=== PATIENT | female | born 1945 | race Caucasian/White ===

== ENCOUNTER → 2023-05-02 10:23 | Outpatient (REF) | payer MEDICARE, OTHER, SELFPAY ==
[2023-05-02 12:16] LABS: % Basophils 0.7 % (0-2); % Eosinophils 0.8 % (0-6); % Immature Granulocytes 0.7 % (0-0.5); % Lymphocytes 21.4 % (20.5-51.1); % Monocytes 6.8 % (1.7-9.3); % Neutrophils 69.6 % (42.2-75.2); Absolute Eosinophils 0.1 10^3/uL (0-0.7); Absolute Lymphocytes 1.3 10^3/uL (1.2-3.4); Absolute Monocytes 0.4 10^3/uL (0.1-0.6); Absolute Neutrophils 4.2 10^3/uL (1.4-6.5); Hematocrit 41.7 % (37.0-47.0); Hemoglobin 13.4 g/dL (12.0-16.0); Mean Corp Hgb Conc. 32.1 g/dL (33.0-37.0); Mean Corpuscular Hgb 28.3 pg (27.0-31.0); Mean Platelet Volume 12.2 fL (7.4-10.4); Nucleated Red Blood Cells % 0 %; Platelet Count 170 10^3/uL (130-400); Red Blood Cell Count 4.74 10^6/uL (4.20-5.40); Red Cell Dist. Width 13.8 % (11.5-14.5); White Blood Cell Count 6.1 10^3/uL (4.8-10.8)
[2023-05-02 12:24] LABS: INR 1.02; PT 13.4 Sec (11.4-14.6)
[2023-05-02 12:25] LABS: APTT 27.1 Sec (23.4-35.0)
[2023-05-02 12:36] LABS: ALT (SGPT) 18 U/L (0-35); AST (SGOT) 24 U/L (14-36); Albumin 3.7 g/dl (3.5-5.0); Alkaline Phosphatase 54 U/L (38-126); Blood Urea Nitrogen 10 mg/dl (7-17); Calcium 9.2 mg/dl (8.4-10.2); Carbon Dioxide 30 mmol/L (22-30); Chloride 102 mmol/L (98-107); Glucose 88 mg/dl (70-99); HDL Cholesterol 79 mg/dl; Iron 50 ug/dl (37-170); LDL Cholesterol, Calculated 129 mg/dl; Potassium 3.7 mmol/L (3.5-5.1); Sodium 138 mmol/L (135-145); Total Bilirubin 0.7 mg/dl (0.2-1.3); Total Cholesterol 226 mg/dl (50-199); Total Protein 6.6 g/dl (6.3-8.2); Triglyceride 93 mg/dl (10-149); Very Low Density Lipoprotein 18 mg/dl (0-30); eGFR > 60.00
[2023-05-02 12:45] LABS: Percent Saturation 13 % (20-50); Total Iron Binding Capacity 380 ug/dl (265-497)
[2023-05-02 12:58] LABS: Vitamin D, 25-OH*** 32.8 ng/mL (30-80)
[2023-05-02 13:16] LABS: Ferritin 11.3 ng/ml (11.1-264.0)
[2023-05-02 13:48] LABS: Folate 15.4 ng/ml (2.76-20); Vitamin B12 863 pg/ml (239-931)
[2023-05-02 14:13] LABS: Erythrocyte Sed Rate 12 mm/hour (0-20)
[2023-05-03 16:15] LABS: Number Of Markers 26 markers; Source Blood
[2023-05-05 20:22] LABS: Haptoglobin 61 mg/dL (30-200)
[2023-05-05 21:43] LABS: Purkinje Cell/Neuronal Nuc IgG None Detected (None Detected)
[2023-05-06 13:23] LABS: Alpha-Tocopherol 14.3 mg/L (5.5-18.0)
[2023-05-07 04:14] LABS: Albumin 4.14 g/dL (3.75-5.01); Alpha 1 Globulin 0.27 g/dL (0.19-0.46); Alpha 2 Globulin 0.59 g/dL (0.48-1.05); Free Kappa Light Chains,Quant 15.36 mg/L (3.30-19.40); Free Lambda Light Chains,Quant 11.98 mg/L (5.71-26.30); IgA 214 mg/dL (68-408); IgG 799 mg/dL (768-1632); IgM 88 mg/dL (35-263); Immunofixation Electrophoresis IFE Done; Kappa/Lambda Fr Light Ratio 1.28 (0.26-1.65); Total Protein-Electrophoresis 6.5 g/dL (6.3-8.2)
[2023-05-07 16:36] LABS: Viscosity Serum 1.17 cP (<=1.50)
== END ==
LOC: HWLAB 10:23
PROVIDERS: ATTENDING PHYSICIAN Internal Medicine Hematology & Oncology; FAMILY PHYSICIAN Family Medicine; OTHER PHYSICIAN Physician Assistant; OTHER PHYSICIAN Psychiatry & Neurology Neurology; REFERRING PHYSICIAN Internal Medicine
DX: R26.89 Other abnormalities of gait and mobility (principal); I73.00 Raynaud's syndrome without gangrene; D72.823 Leukemoid reaction; D89.1 Cryoglobulinemia; R79.1 Abnormal coagulation profile; C88.0 Waldenstrom macroglobulinemia; D53.1 Other megaloblastic anemias, not elsewhere classified; D50.0 Iron deficiency anemia secondary to blood loss (chronic); R97.8 Other abnormal tumor markers; I10 Essential (primary) hypertension; I48.0 Paroxysmal atrial fibrillation; E78.00 Pure hypercholesterolemia, unspecified; E55.9 Vitamin D deficiency, unspecified
CPT/HCPCS: 36415; 80053; 80061; 82306; 82607; 82728; 82746; 82784; 83010; 83521; 83540; 83550; 84155; 84165; 84446; 85025; 85610; 85652; 85730; 85810; 86140; 86255; 86334

== ENCOUNTER → 2023-07-11 10:01 | Outpatient (REF) | payer MEDICARE, OTHER, SELFPAY ==
[2023-07-11 11:55] LABS: % Basophils 0.6 % (0-2); % Eosinophils 0.3 % (0-6); % Immature Granulocytes 0.8 % (0-0.5); % Lymphocytes 22.2 % (20.5-51.1); % Monocytes 6.8 % (1.7-9.3); % Neutrophils 69.3 % (42.2-75.2); Absolute Immature Granulocytes 0.1 10^3/uL (0-0.05); Absolute Lymphocytes 1.4 10^3/uL (1.2-3.4); Absolute Monocytes 0.4 10^3/uL (0.1-0.6); Absolute Neutrophils 4.4 10^3/uL (1.4-6.5); Mean Corp Hgb Conc. 32.5 g/dL (33.0-37.0); Mean Corpuscular Hgb 27.9 pg (27.0-31.0); Mean Corpuscular Volume 85.8 fL (81.0-99.0); Mean Platelet Volume 12.5 fL (7.4-10.4); Nucleated Red Blood Cells % 0 %; Platelet Count 166 10^3/uL (130-400); Red Blood Cell Count 4.66 10^6/uL (4.20-5.40); Red Cell Dist. Width 15.1 % (11.5-14.5); White Blood Cell Count 6.4 10^3/uL (4.8-10.8)
[2023-07-11 12:11] LABS: Blood Urea Nitrogen 18 mg/dl (7-17); Calcium 9.4 mg/dl (8.4-10.2); Carbon Dioxide 29 mmol/L (22-30); Chloride 105 mmol/L (98-107); Glucose 90 mg/dl (70-99); Potassium 3.8 mmol/L (3.5-5.1); Sodium 139 mmol/L (135-145); eGFR > 60.00
== END ==
LOC: HWLAB 10:01
PROVIDERS: ATTENDING PHYSICIAN Family Medicine
DX: Z01.818 Encounter for other preprocedural examination (principal)
CPT/HCPCS: 36415; 80048; 85025

== ENCOUNTER 2023-11-20 17:05 | Observation (INO) | payer MEDICARE, OTHER, SELFPAY ==
[2023-11-20 15:47] VITALS: BP 208/107
[2023-11-20 16:03] LABS: Glucose - Point of Care 169 mg/dl (70-99)
[2023-11-20 16:04] LABS: % Basophils 0.4 % (0-2); % Eosinophils 0.7 % (0-6); % Immature Granulocytes 0.5 % (0-0.5); % Lymphocytes 22.5 % (20.5-51.1); % Monocytes 8.3 % (1.7-9.3); % Neutrophils 67.6 % (42.2-75.2); Absolute Eosinophils 0.1 10^3/uL (0-0.7); Absolute Lymphocytes 1.7 10^3/uL (1.2-3.4); Absolute Monocytes 0.6 10^3/uL (0.1-0.6); Absolute Neutrophils 5.1 10^3/uL (1.4-6.5); Hematocrit 37.4 % (37.0-47.0); Hemoglobin 12.6 g/dL (12.0-16.0); Mean Corp Hgb Conc. 33.7 g/dL (33.0-37.0); Mean Corpuscular Hgb 27.7 pg (27.0-31.0); Mean Corpuscular Volume 82.2 fL (81.0-99.0); Mean Platelet Volume 12.2 fL (7.4-10.4); Nucleated Red Blood Cells % 0 %; Platelet Count 158 10^3/uL (130-400); Red Blood Cell Count 4.55 10^6/uL (4.20-5.40); Red Cell Dist. Width 14.8 % (11.5-14.5); White Blood Cell Count 7.6 10^3/uL (4.8-10.8)
--- NOTE | 2023-11-20 16:05 | ED.CVA ---
History of Present Illness
General
Chief Complaint: CVA/TIA Symptoms
Source: patient and family (Daughter)
Exam Limitations: none
Time Seen by Provider: 11/20/23 16:04
Onset of Stroke Symptoms
Onset of symptoms known: Yes
Date of onset of symptoms: 11/20/23
Time of onset of symptoms: 15:20
History of Present Illness
History of Present Illness:
78-year-old female sudden onset of right-sided numbness to the arm and leg at about 3:20 PM. Called her daughter. Met at the hospital with her . Patient denies any gait issues unusual headache visual issues speech issues or other
complaints. Symptoms are unchanged since onset
Past History
Past History
ED Past Medical History: Arrthythmia and Other (HTN, AFIB, WALDENSTROM'S, GERD, IBS)
ED Past Surgical History: Orthopedic
Social History
Tobacco: Non-smoker
Alcohol: None
Drug: None
Personal:
Living: with family
Review of Systems
Review of Systems
All Other Systems: Not applicable
Respiratory: Reports no symptoms
Cardiac: Reports no symptoms
ABD/GI: Reports no symptoms
Phy Exam
Physical Exam
Physical Exam:
GENERAL: Alert and oriented in no apparent distress
EYE: Orbits normal.
NECK: Supple, no carotid bruit.
ENT: Pharynx without erythema
CARDIAC: Regular rate and rhythm without any obvious murmurs.
LUNGS: Clear breath sounds,normal
ABDOMEN: Soft, without focal tenderness or distention
NEUROLOGICAL: Alert and oriented , speech normal. Slightly slow to answer questions although fully alert. [id number]-[id number] normal. No drift. Good lower extremity strength. No extinction. Light touch intact although subjectively decreased in the
arm and leg.
SKIN: Warm and dry, no rash or lesion, no discoloration, skin intact.
MUSCULOSKELETAL: No edema,no deformity.Good color
PSYCH: Normal and appropriate interaction.
Scores
NIH Stroke Score
Level of Consciousness: 0 - Alert
LOC Questions: 0-Answers both correctly
LOC Commands: 0-Performs both correctly
Best Horizontal Gaze: 0-Normal
Visual Butcher: 0=Normal, no visual loss
Facial Palsy: 0=Normal, symmetrical
Motor - Right Arm: 0=No drift 10 seconds
Motor - Left Arm: 0=No drift 10 seconds
Motor - Right Le-No drift 5 seconds
Motor - Left Le-No drift 5 seconds
Limb Ataxia: 0-Absent
Sensation: 1-Mild loss
Best Language: 0-No aphasia
Dysarthria: 0-Normal
Extinction and Inattention: 0-No abnormality
Total Score:: 1
Course
Orders/Labs/Results
Orders:
Orders
11/20/23 15:56
Electrocardiogram (*1) Urgent
Reason for Study: Other
Other Reason for Exam: Possible Stroke
CT Head W/o Cont STROKE ALERT Urgent
Comment: symptoms started 15:20 pm today.
Reason For Exam: right face and right arm numbness
EKG- Treatment ONCE
IV Insert/Care/Rem.- Treatment PRN
11/20/23 15:58
Complete Blood Count/With Diff Urgent
Comprehensive Metabolic Panel Urgent
PTT Urgent
Prothrombin Time Urgent
Troponin I Urgent
11/20/23 16:24
Aspirin Chewable [Low Strength Aspirin] 324 mg PO NOW STA
11/20/23 16:44
Admit/Transfer Patient As Directed
Co-Sign Provider:
Level of Care: Observation services
Assign to:: Telemetry
Physician / Group: Htay
Diagnosis: right sided numbness
Reason for Telemetry: CVA/TIA
Date to Stop Telemetry: 11/23/23
Time to Stop Telemetry: 11:00
11/20/23 16:45
PRN Pain Medication Management As Directed
May give lesser potent ordered pain med per pt: Yes
preference::
Protocol:: Medication orders for pain may be administered in a
manner that supports deferring to patient preference
when the pt is:
- Requesting an ordered lesser potent pain medication.
Least to most potent pain medications are defined
as: acetaminophen < NSAID < tramadol < opioids
(morphine, oxycodone, hydromorphone).
- Requesting a lesser dose of the same medication IF
ORDERED.
- Requesting a less intrusive route of administration
if both routes are prescribed by the provider (PO <
IV).
11/20/23 16:46
Code Status As Directed
Resuscitation Status: Full Code
11/20/23 17:57
Acetaminophen [Tylenol/Feverall] 650 mg RECTAL Q4HPRN PRN
Acetaminophen [Tylenol] 650 mg PO Q4HPRN PRN
HydrALAZINE [Apresoline] 5 mg IV Q4HPRN PRN
11/20/23 17:57
Case Management Consult ONCE
Case Management Consult: Discharge Planning
Comment: stroke/tia
DIETARY CONSULT Routine
Reason for Consult: stroke/TIA
NEUROLOGY CONSULT Routine
Consulting Provider: Karlo Barth
Was physician already notified: Yes
Wellness Nurse Urgent
Activity As Directed
Activity Level: Out of Bed- Chair
NIH Stroke Scale As Directed
Directions: Per protocol
Comment: every shift and with any change in condition or mental status
Neurological Checks As Directed
Frequency: q4h
Additional Instructions:: q4h x 24h upon admission to the floor, then qshift & with any change in condition
and mental status
Patient Education As Directed
Type: Stroke education packet
Comment: provide to patient and family
Pneumatic Compression Sleeves As Directed
Type: Knee high
Swallow Screening CVA/TIA ONLY As Directed
Comment: NPO until swallowing screening completed
If patient FAILS swallow screening:: NPO, Speech Therapy consult, Aspiration Precautions
If patient PASSES swallow screening, diet:: Cholesterol Lowering
Above diet order entered?: Yes- passed screening
Vital Signs As Directed
Frequency: Per unit guidelines
Ot Eval And Treat Routine
Pt Eval And Treat Routine
Activity Level: Out of Bed-Early Mobility
Speech Therapy Eval & Treat Routine
DX Deep Vein Thrombosis Video Routine
11/20/23 20:00
Flecainide [Tambocor] 150 mg PO Q12
11/21/23 06:00
Basic Metabolic Panel IN AM
Cardiovascular Evaluation IN AM
Complete Blood Count/No Diff IN AM
Glycohemoglobin (HgbA1c) IN AM
Magnesium IN AM
11/21/23 08:00
Aspirin Chewable [Low Strength Aspirin] 81 mg PO DAILY
11/21/23 15:00
ibrutinib [Imbruvica] 420 mg PO DAILY@1500
11/21/23 20:00
Amlodipine [Norvasc] 5 mg PO BID
HydrALAZINE [Apresoline] 10 mg PO BID
11/23/23 11:00
DC Protocol for Telemetry ONCE
Abnormal Lab Results
11/20/23 11/20/23
15:58 16:01
RDW 14.8 H %
(11.5-14.5)
MPV 12.2 H fL
(7.4-10.4)
BUN 20 H mg/dl
(7-17)
Glucose 191 H mg/dl
(70-99)
POC Glucose 169 H mg/dl
(70-99)
11/20/23 15:58
11/20/23 15:58
Vital Signs
Initial and Last Documented VS:
Initial Vital Signs
Temp Pulse Resp BP Pulse Ox
98.5 F 70 16 208/107 98
11/20/23 15:47 11/20/23 15:47 11/20/23 15:47 11/20/23 15:47 11/20/23 15:47
Last Documented Vital Signs
Temp Pulse Resp BP Pulse Ox
98.6 F 73 17 151/80 92
11/20/23 20:59 11/20/23 21:10 11/20/23 20:59 11/20/23 21:10 11/20/23 20:59
MDM/Problems Addressed
Differential Diagnosis Includes:
Patient with an NIH of 1. Symptoms for 45 minutes. No drift no weakness. No speech issues. Unsure why she is not on anticoagulation with a [id number] of 2+. However not an indication for TNK given the minimal disability at this time.
Daughter who is a neurologic nurse is in agreement. Stroke alert was called. Await neurology input.
*Radiology
Radiology exam reviewed: radiology read reviewed (Old lacunar infarcts)
*Pulse Oximetry
Patient hypoxic: no
*EKG
Interpreted by ED Provider?: Yes
Interpretation: abnormal
Comparison EKG: changes noted
Rate: normal
Rhythm: sinus
[place]: left axis deviation
Interval: normal interval
QRS Pattern: left vent hypertrophy
Ischemia: non-specific ST changes
*Mine Car Mechanic Interpretation
Rate: normal
Interpretation: normal
Heart Rate: 74
Rhythm: sinus
*Critical Care Note
Total Time (30-74mins, 75-104mins- exclusive of procedures): 40
Update Note
Update Note:
Seen by neurology. Agree with aspirin. Reviewed with nephrology
ED Attending Note
-
Portions of this chart may have been created with voice recognition software.� Occasional wrong word or��sound alike� substitutions may have occurred due to the inherent limitations of voice recognition software.
Discharge Plan
Departure
Patient Disposition: Admit
Date of Disposition: 11/20/23
Time of Disposition: 16:26
Presentation/result/management discussed w/ accepting MD/DO: Neurology
Discharge Problem:
Sensory CVA, History of atrial fibrillation
Interventions
Interventions:
*Risk Screen - Suicide Last Done: 11/20/23 16:10
*General Assessment Last Done: 11/20/23 16:10
*Neglect/Abuse Screening Last Done: 11/20/23 15:47
*ED COVID-19 Vaccine History Last Done: 11/20/23 18:25
*Nursing Disposition Last Done: 11/20/23 18:00
ED- Pulmonary Assessment Last Done: 11/20/23 16:10
ED- Neurological Assessment Last Done: 11/20/23 16:10
ED- Cardiac Assessment Last Done: 11/20/23 16:10
ED Swallowing Screen Last Done: 11/20/23 16:20
Discharge Date and Time
Discharge Date/Time: 11/20/23 18:00
[2023-11-20 16:09] VITALS: BP 183/76
[2023-11-20 16:10] VITALS: BMI 22.3
[2023-11-20 16:17] LABS: INR 1.03; PT 13.3 Sec (11.4-14.6)
[2023-11-20 16:18] LABS: APTT 25.8 Sec (23.4-35.0)
[2023-11-20 16:22] LABS: ALT (SGPT) 17 U/L (0-35); AST (SGOT) 25 U/L (14-36); Albumin 4.1 g/dl (3.5-5.0); Alkaline Phosphatase 48 U/L (38-126); Blood Urea Nitrogen 20 mg/dl (7-17); Carbon Dioxide 24 mmol/L (22-30); Chloride 104 mmol/L (98-107); Estimated Creatinine Clearance 49 ml/min; Glucose 191 mg/dl (70-99); Potassium 3.9 mmol/L (3.5-5.1); Sodium 142 mmol/L (135-145); Total Bilirubin 0.4 mg/dl (0.2-1.3); Total Protein 6.5 g/dl (6.3-8.2); eGFR > 60.00
[2023-11-20 16:28] LABS: Troponin I < 0.012 ng/ml
[2023-11-20] MEDS: LOW STRENGTH ASPIRIN 324 MG PO (16:34)
--- NOTE | 2023-11-20 16:56 | HPS.HSE ---
Family Physician
-
Family Physician: NOT KNOW UNKNOWN - PT DOES
Chief Complaint
-
Right Sided Numbness
History of Present Illness
Patient is a 78 yo Citizen Of [place]/Swedish-speaking female with a hx of HTN, Afib with a permanent pacemaker, Waldenstrom's macroglobulinemia, presents with new R-sided numbness and weakness that began this afternoon. History provided by patient and
patient's daughter. Her symptoms began suddenly this afternoon when she developed numbness in her lips, right UE and right LE. She also had felt weak in her right arm and dropped a cup that she was holding in her right hand. Additionally she felt
unstable on her feet and daughter noted that pt's speech was slightly slurred. Daughter did not notice a facial droop. Patient states she has never experienced these symptoms before. As of now her symptoms have improved and she only notes some
numbness still in her lips, worse on the right side. According to the daughter she does not currently take a blood thinner for her Afib. She denies dizziness, vision changes, headache, chest pain, or SOB.
Medical History
Past Medical History
Past Medical History: Reports Other
Additional Past Medical History:
Paroxysmal Atrial Fibrillation
Waldenstrom Macroglobulinemia
Essential Hypertension
Hyperlipidemia
Macular Degeneration
Past Surgical History: Reports Other
Additional Past Surgical History:
Left Hand
Social History
Tobacco: Non-smoker
Alcohol: None
Family History
Family History: Not pertinent
Allergies / Home Medications
Allergies reflects when Allergies were last updated in [facility].
Home Medications with original date entered in [facility]
Allergy/Medication List:
Allergies
Allergy/AdvReac Type Severity Reaction Status Date / Time
adhesive tape Allergy Rash Verified 11/20/23 15:50
metoprolol Allergy dizziness Verified 11/20/23 15:50
Home Medications
amlodipine 5 mg tablet 5 mg PO BID 11/20/23
cholecalciferol (vitamin D3) 50 mcg (2,000 unit) tablet (Vitamin D3) 50 mcg PO DAILYPRN PRN supplement 11/20/23
conjugated estrogens 0.625 mg/gram vaginal cream (Premarin) 0.625 mg vaginal QWEEK 11/20/23
flecainide 100 mg tablet 150 mg PO Q12H 11/20/23
hydralazine 10 mg tablet 10 mg PO BID 11/20/23
hydralazine 10 mg tablet 10 mg PO DAILYPRN PRN hypertension 11/20/23
ibrutinib 420 mg tablet (Imbruvica) 420 mg PO DAILY@1500 11/20/23
ranibizumab-eqrn 0.5 mg/0.05 mL intravitreal solution for injection (Cimerli) 0.5 mg intravitreal Q4W 11/20/23
Review of Systems
-
Unable to obtain full review of systems at this time due to: Language Barrier
Physical Exam
Vital Signs
Vital Signs
Temp Pulse Resp BP Pulse Ox
98.5 F 70 18 183/76 97
11/20/23 15:47 11/20/23 16:45 11/20/23 16:45 11/20/23 16:09 11/20/23 16:45
Physical Exam
General: Comfortable and Conversant
HEENT: Anicteric and Moist mucous membranes
Respiratory: Clear and Non Labored Respirations
Cardiac: S1/S2, Regular Rhythm and Murmur
GI: Soft and Non Distended
Rectal: Deferred by Provider
Musculoskeletal: No Clubbing, No Cyanosis and No Edema
Skin: Warm and Dry
Neuro: Awake, Alert, No Motor Deficits and Other (Reported decreased sensation right upper and lower extremity)
Laboratory Results
-
11/20/23 15:58
11/20/23 15:58
Laboratory Results
PT 13.3 Sec (11.4-14.6) 11/20/23 15:58
INR 1.03 11/20/23 15:58
APTT 25.8 Sec (23.4-35.0) 11/20/23 15:58
Total Bilirubin 0.4 mg/dl (0.2-1.3) 11/20/23 15:58
AST 25 U/L (14-36) 11/20/23 15:58
ALT 17 U/L (0-35) 11/20/23 15:58
Alkaline Phosphatase 48 U/L (38-126) 11/20/23 15:58
Troponin I < 0.012 ng/ml 11/20/23 15:[address]:
There is a 3 mm probably old lacunar infarct in the right external capsule
There is 3 mm probably lacunar infarct in the left external capsule
There is mild diffuse cortical and cerebellar atrophy
Data Reviewed
-
Lab Data: Labs Reviewed by me
Impression/Plan
-
Right Sided Numbness
-Consult Neurology
-Start aspirin
-Check HgbA1c and FLP
-Patient unable to have MRI as pacemaker is NOT MRI conditional per family
-Check repeat head CT tomorrow
Paroxysmal Atrial Fibrillation
-Unclear why patient is not on anticoagulation
-Consult Cardiology
-Continue flecainide
Hypertensive Emergency
-Allow for permissive hypertension for 24 hours after on set of stroke symptoms
-Will use hydralazine IV for SBP >220 or DBP>120
-Resume amlodipine and hydralazine tomorrow afternoon
Hyperlipidemia
-Patient is intolerant to statin
Waldenstrom Macroglobulinemia
-Continue Imbruvica
DVT proph: SCDs
Code Status: Full Code
--- NOTE | 2023-11-20 17:06 | W.PN.UPDATE ---
Update Note
Progress Note Update
This note serves as an addendum to the H&P by junior electrical engineer MITZI Shanika GREGORY
HPI
78F BiB Daughter HX AF , not on blood thinner for uncertain reason , HTN, WALDENSTROM'S, GERD, IBS pw sdden onset of right-sided numbness to the arm and leg at about 3:20 PM.
- Patient denies any gait issues unusual headache visual issues speech issues or other complaints.
- Symptoms are unchanged since onset
PHX; as above
Reviewed VS: afebrile BP 210/17 HR 70 RR 16 POx 98
PE
Gen: NAD
HEENT: nomrla ariculation and speech
Neck: supple
Lungs: CTA
Cor: RRR S1 S2
Abdomen: benigh
DUCK OPERATOR: NFND AAO3
MS:
Psych:
NIH 1 subjective sensory loss Rt arm and leg
Data
unremarkable CBC
unremarkable CMP
BG 191
BUN 20
NEG TPNI
EKG
In NSR
SINUS RHYTHM WITH PREMATURE ATRIAL COMPLEXES IN A PATTERN OF BIGEMINY
LEFT AXIS DEVIATION
LEFT VENTRICULAR HYPERTROPHY WITH QRS WIDENING ( R in aVL , Calos product )
ABNORMAL ECG
NO PREVIOUS ECGS AVAILABLE
HCT
There is a 3 mm probably old lacunar infarct in the right external capsule
There is 3 mm probably lacunar infarct in the left external capsule
There is mild diffuse cortical and cerebellar atrophy
Last hospitalist admission:
ASSESSMENT & PLAN
Suspect acute lacuna CVA
Acute 3 mm lacunar infarct in the left external capsule
3 mm probably old lacunar infarct in the right external capsule
HTN emergency - pemissive HTN due to acute lacuna infarct
of note; She was not APL due to HX chr intermittent dirrhea and IBS
- Permissive HTN 220 / 110 thus held Hydralzine and Amlodipine
- Initiated ASA
- Held Amlodipine and Hydralazine
- Repeat HCT tomorrow afternoon
- Neurologist consulted
HX Prx AF
- cont Flecainide
HX old model PPM - incompatible with MRI per daughter
Chr condition:
WALDENSTROM'S
GERD
IBS
DVT Px: SCD
Code: Fill
Obs TLM
--- NOTE | 2023-11-20 17:08 | CON.NEURO4 ---
Consultation - Neurology 4
-
CONSULTING PHYSICIAN: Karlo Barth MD(Neurology)
REFERRING PHYSICIAN: Hospitalist
DICTATED BY: Karlo Barth MD
DATE/TIME OF REQUEST: 11/20/2023
DATE/TIME OF CONSULTATION: 11/20/2023
Reason for Consultation: Right sided numbness....
History of Present Illness:
This is a 78 year old right handed female who has presented to the hospital with (chief complaint) of numbness. She gives a h/o , HTN, Waldenstrom macroglobulin, GERD, IBS, cardiac arrhythmia s/p pacemaker 2009 who had been in her [place] when she
had numbness of the right arm and leg at about 3:20 PM.
No motor issues. Possible slurred speech that has resolved. Pat voice very low volume
These symptoms persisted and she came into the ER. In the ER my Exam revealed no deficits
Patient denies any gait issues unusual headache visual issues speech issues or other complaints.
Symptoms are minimal since onset
History provided by daughter. Pat does not know Maltese is anxious and hesitant to answer
Past Medical History: As above
Surgical History: Pacemaker
Family History: NC
Social History: lives at home
Allergies: NKA
Home Medications: Addendum
Review of Symptoms:
Patient denies any fever, headache, chest pain, shortness of breath, GI or symptoms.
�Per the HPI.�All systems are reviewed negative except above.
�-
Vital Signs:
The patient has a Temp 37.5 C Pulse71 Resp 18 BP201/97 Pulse Ox 97
Physical Exam:
The patient is afebrile, heart sounds S1 and S2 are (regular , and chest is clear to auscultation bilaterally.
- If not clear, describe.
NIH Stroke Scale (if applicable):
I performed the NIH stroke scale on the patient. The patient scored ( 1 ) points on the NIH stroke scale assessment, which were assigned as follows:
Neurologic Examination:
The patient is awake, alert and oriented x 3. She is able to follow commands and answer questions appropriately.Speech is fluent with intact comprehension and repetition. There is no aphasia or dysarthria. Low volume
On cranial nerve assessment, pupils are 3 mm bilateral, round and reactive to light and accommodation. Visual gomez are full. Extraocular movements are intact. Facial sensations are intact and bilaterally symmetrical, there is no facial asymmetry.
Hearing is intact bilaterally to normal conversation volume. Tongue palate and uvula are midline. Sternocleidomastoid strengths are full bilaterally.
Motor strengths are 5/5 bilateral upper and lower extremities on medical research [place] scale. There is no drift or involuntary movement noted.
Deep tendon reflexes are 2+ bilateral upper and lower extremities and Babinski is absent bilaterally.
Sensations of pain, touch, temperature and vibration are intact and bilaterally symmetrical. There was no extinction noted on double simultaneous stimulation. Coordination is intact by finger to nose bilaterally. Rombergs and Gait WNL
Lab Results: Addendum
Neuro Imaging: CT head: Atrophy. Small vessel disease-Lacunar disease bilaterally . Normal ventricles
Impression:
(Mrs.) GURPREET MCGARRY is a 78 year old F who has presented to the hospital with (symptoms/chief complaint). of RIght sided numbness
Differentials for the patient's presentation include:
1. Lacunar syndrome
Recommendations:
1. Aspirin 325 mg load followed by Aspirin 81 mg maintenance
2. Serial CT head
3. Permissive HTN
4. Continue Flecainide
5. Consider Statin...
6. PT/OT
Pat may be discharged home once medically stable.
Discussed patient care with: Hospitalist
Allergies
-
Allergies
Allergy/AdvReac Type Severity Reaction Status Date / Time
adhesive tape Allergy Rash Verified 11/20/23 15:50
metoprolol Allergy dizziness Verified 11/20/23 15:50
Vital Signs and Labs
-
Vital Signs and Labs:
Vital Signs
Temp Pulse Resp BP Pulse Ox
37.5 C 71 18 201/97 97
11/20/23 18:03 11/20/23 18:03 11/20/23 18:03 11/20/23 18:03 11/20/23 18:03
Lab Results
11/20/23 15:58
11/20/23 15:58
PT 13.3 Sec (11.4-14.6) 11/20/23 15:58
INR 1.03 11/20/23 15:58
APTT 25.8 Sec (23.4-35.0) 11/20/23 15:58
Sodium 142 mmol/L (135-145) 11/20/23 15:58
Potassium 3.9 mmol/L (3.5-5.1) 11/20/23 15:58
BUN 20 mg/dl (7-17) H 11/20/23 15:58
Glucose 191 mg/dl (70-99) H 11/20/23 15:58
Calcium 9.0 mg/dl (8.4-10.2) 11/20/23 15:58
Medications
-
Active Medications
Generic Name Dose Route Start Last Admin
Trade Name Freq PRN Reason Stop Dose Admin
Acetaminophen 650 mg 11/20/23 17:57
Acetaminophen 650 Mg Rectal Suppository RECTAL 12/18/23 17:56
Q4HPRN PRN
AGUILERA, mild pain, or temp >100.4F
Acetaminophen 650 mg 11/20/23 17:57
Acetaminophen 325 Mg Tablet PO 12/18/23 17:56
Q4HPRN PRN
AGUILERA, mild pain, or temp >100.4F
Amlodipine Besylate 5 mg 11/21/23 20:00
Amlodipine 5 Mg Tablet PO 12/19/23 19:59
BID LATISHA
Aspirin 81 mg 11/21/23 08:00
Aspirin 81 Mg Chewable Tablet PO 12/19/23 07:59
DAILY LATISHA
Flecainide Acetate 150 mg 11/20/23 20:00
Flecainide 100 Mg Tablet PO 12/18/23 19:59
Q12 LATISHA
Hydralazine HCl 10 mg 11/21/23 20:00
Hydralazine 10 Mg Tablet PO 12/19/23 19:59
BID LATISHA
Hydralazine HCl 5 mg 11/20/23 17:57
Hydralazine 20 Mg/Ml Vial IV 12/18/23 17:56
Q4HPRN PRN
SBP>220 or DBP>110
Non-Formulary Medication 420 mg 11/21/23 15:00
Ibrutinib [Imbruvica] PO 12/19/23 14:59
DAILY@1500 LATISHA
Sodium Chloride 0 flush 11/20/23 18:00
Sodium Chloride 0.9% (Flush) Syringe IV 12/18/23 17:59
PER PROTOCOL LATISHA
Home Medications
�Medication �Instructions �Recorded
amlodipine 5 mg tablet 5 mg PO BID 11/20/23
cholecalciferol (vitamin D3) 50 50 mcg PO DAILYPRN PRN supplement 11/20/23
mcg (2,000 unit) tablet (Vitamin
D3)
conjugated estrogens 0.625 mg/gram 0.625 mg vaginal QWEEK 11/20/23
vaginal cream (Premarin)
flecainide 100 mg tablet 150 mg PO Q12H 11/20/23
hydralazine 10 mg tablet 10 mg PO BID 11/20/23
hydralazine 10 mg tablet 10 mg PO DAILYPRN PRN hypertension 11/20/23
ibrutinib 420 mg tablet (Imbruvica) 420 mg PO DAILY@1500 11/20/23
ranibizumab-eqrn 0.5 mg/0.05 mL 0.5 mg intravitreal Q4W 11/20/23
intravitreal solution for
injection (Cimerli)
[2023-11-20 18:02] VITALS: BMI 21.9
[2023-11-20 18:03] VITALS: BP 201/97
[2023-11-20 18:40] VITALS: BMI 21.9
--- NOTE | 2023-11-20 19:09 | PTCARENOTE ---
Received patient from ED via stretcher. AAOx3, ambulated with assistance to bed. Family at bedside. Telemetry reading A-paced. Assessed and oriented to room.
[2023-11-20 20:59] VITALS: BP 151/80
[2023-11-20] MEDS: TAMBOCOR 150 MG PO (21:00)
[2023-11-20] MEDS: NORVASC 5 MG PO (21:10)
[2023-11-20] MEDS: MELATONIN 5 MG PO (21:11)
[2023-11-20 23:22] VITALS: BP 184/88
[2023-11-21 03:35] VITALS: BP 149/88
[2023-11-21 07:15] VITALS: BP 169/97
[2023-11-21] MEDS: LOW STRENGTH ASPIRIN 81 MG PO (07:26)
[2023-11-21] MEDS: NORVASC 5 MG PO (07:26)
[2023-11-21] MEDS: TAMBOCOR 150 MG PO (07:26)
[2023-11-21 07:57] LABS: Hematocrit 39.6 % (37.0-47.0); Hemoglobin 13.1 g/dL (12.0-16.0); Mean Corp Hgb Conc. 33.1 g/dL (33.0-37.0); Mean Corpuscular Hgb 27.8 pg (27.0-31.0); Mean Corpuscular Volume 83.9 fL (81.0-99.0); Platelet Count 166 10^3/uL (130-400); Red Blood Cell Count 4.72 10^6/uL (4.20-5.40); Red Cell Dist. Width 14.9 % (11.5-14.5)
[2023-11-21 08:41] LABS: Blood Urea Nitrogen 14 mg/dl (7-17); Calcium 9.2 mg/dl (8.4-10.2); Carbon Dioxide 28 mmol/L (22-30); Chloride 104 mmol/L (98-107); Estimated Creatinine Clearance 57 ml/min; Glucose 89 mg/dl (70-99); HDL Cholesterol 78 mg/dl; LDL Cholesterol, Calculated 170 mg/dl; Magnesium 1.9 mg/dl (1.6-2.3); Potassium 3.6 mmol/L (3.5-5.1); Sodium 143 mmol/L (135-145); Total Cholesterol 271 mg/dl (50-199); Triglyceride 115 mg/dl (10-149); Very Low Density Lipoprotein 23 mg/dl (0-30); eGFR > 60.00
--- NOTE | 2023-11-21 09:06 | CON.CAR ---
Addendum entered and electronically signed by Ze Dunne MD 11/21/23 11:05:
I saw and examined the patient.
The Renal Case Manager's note was reviewed and I agree with the note.
Comment:
GEN: No distress, awake, Ox3
HEENT: supple, anicteric, mmm
LUNGS: CTA, no wheezes/rales
CV: Reg, S1/S2, 1/6 syst LSB, no gallop
ABD: soft, BS+, NT/ND
EXT: No edema
NEURO: no overt power deficits
SKIN: No rash
Plan:
She has a past medical history of paroxysmal atrial fibrillation, permanent pacemaker, hypertension, Waldenstr�m's, and ocular vitreous hemorrhage. She presents with difficulty with speech, right-sided weakness and some right facial numbness. CT
scan reveals lacunar infarcts. In the past she was felt not to be on oral anticoagulation candidate by her mix house tender because of Waldenstr�m's and significant bruising/nosebleeds. She also gets eye injections.
I suspect she has had a TIA/CVA. It remains unclear whether this is from small vessel disease or from a possible embolic source from her paroxysmal atrial fibrillation.
I had a lengthy discussion with her and her daughter regarding long-term risk of anticoagulation. With known atrial fibrillation and TIA/CVA she clearly would benefit from long-term anticoagulation from my embolic stroke risk standpoint. It
remains unclear what her long-term bleeding risk is. For now for now continue aspirin and Plavix. Check lipids. Goal LDL below 70.
She remains in a paced rhythm. Will continue flecainide 150 p.o. every 12.
She is on Imbruvica which does increase the bleeding risk with thrombocytopenia.
I did feel that a trial of Eliquis would be reasonable. The family is going to consider this option.
An MRI would be helpful here to see if her strokes were from an embolic source.
Original Note:
Consultation
Consultation Request
Date/Time Consultation Performed: 11/21/23
Requesting Provider: Dr. Matson
Performing Provider: Cindy Ivey PA-C for Dr. Dunne
Reason for Consultation: CVA symptoms
Medical History
-
Chief Complaint: R sided weakness
History of Present Illness:
Patient is a 78 yo F with PMH of PAF, [employer] PPM, HTN, waldenstrom's macroglobulinemia, venous insufficiency who presents with stroke like symptoms. She felt R sided weakness in addition to tingling around her lips, generalized weakness,
and had mild slurred speech per daughter with some word finding difficulty. Patient and daughter at bedside report symptoms are now fully resolved. She was diagnosed with waldenstrom's in 2017 and at time of her diagnosis had issues with significant
bruising/nosebleeds and so was not felt to be OAC candidate (follows with Dr. Dheeraj Wood). Daughter states for last 4 years or so she has been stable and well controlled. Her PAF has been monitored through her device and she is maintained on
flecainide. She has hypertension, however in past has been suboptimally treated due to symptoms of dizziness and falls when SBP<150. Daughter reports patient PPM NOT MRI conditional. Patient reports she is active, walks several miles daily. She has
not felt palpitations.
PMH:
PAF
Chronic flecainide therapy
Waldenstrom's macroglobulinemia, diagnosed 2016
Not OAC candidate in past due to bleeding associated with above
[employer] PPM
HTN
Venous insufficiency
Past Medical History
Past Medical History: Other (in HPI)
Social History
Tobacco: Non-Smoker
Alcohol: None
Personal:
Living: With Family
Allergies / Home Medications
Allergy/AdvReac Type Severity Reaction Status Date / Time
adhesive tape Allergy Rash Verified 11/20/23 15:50
metoprolol Allergy dizziness Verified 11/20/23 15:50
�Medication �Instructions �Recorded �Confirmed �Type
amlodipine 5 mg tablet 5 mg PO BID 11/20/23 11/20/23 History
cholecalciferol (vitamin D3) 50 50 mcg PO DAILYPRN PRN supplement 11/20/23 11/20/23 History
mcg (2,000 unit) tablet (Vitamin
D3)
conjugated estrogens 0.625 mg/gram 0.625 mg vaginal QWEEK 11/20/23 11/20/23 History
vaginal cream (Premarin)
flecainide 100 mg tablet 150 mg PO Q12H 11/20/23 11/20/23 History
hydralazine 10 mg tablet 10 mg PO BID 11/20/23 11/20/23 History
hydralazine 10 mg tablet 10 mg PO DAILYPRN PRN hypertension 11/20/23 11/20/23 History
ibrutinib 420 mg tablet (Imbruvica) 420 mg PO DAILY@1500 11/20/23 11/20/23 History
ranibizumab-eqrn 0.5 mg/0.05 mL 0.5 mg intravitreal Q4W 11/20/23 11/20/23 History
intravitreal solution for
injection (Cimerli)
Review of Systems
-
History Source: Patient and Family
All other systems: Negative unless noted
Physical Exam
Vital Signs
Temp Pulse Resp BP Pulse Ox
98.3 F 74 12 169/97 98
11/21/23 07:15 11/21/23 07:15 11/21/23 07:15 11/21/23 07:15 11/21/23 07:45
Lab Results
11/21/23 07:33
11/21/23 07:33
Troponin I < 0.012 ng/ml 11/20/23 15:58
Physical Exam
General: No Apparent Distress and Comfortable
HEENT: Normocephalic, Anicteric and Moist Mucous Membranes
Respiratory: Clear and Non Labored Respirations
Cardiac: S1/S2 and Regular Rhythm
Musculoskeletal: No Clubbing, No Cyanosis and Edema (Trace of B/L LE)
Skin: Warm and Dry
Neuro: AO x 3
Impression / Plan
-
Primary Family Services Manager: Dr. Zahra Bobo of [facility]
Primary Scalping Machine Operator: Dr. Dheeraj Wood
Assessment:
Presentation with R sided weakness
Concern for acute TIA/CVA
PAF
Chronic flecainide therapy
Waldenstrom's macroglobulinemia, diagnosed 2016
Not OAC candidate in past due to bleeding associated with above
[employer] PPM
HTN
Venous insufficiency
Carotid ultrasound 04/19/2022: 1 to 15% stenosis of bilateral internal carotid arteries
Echocardiogram 04/19/2022: EF 55 to 60%, mild MR, trace TR
Plan:
-Patient presents with R sided weakness, concern for acute TIA/CVA. fortunately patient reports symptoms have resolved
-Head CT with evidence of 'probably old' lacunar infarcts
-records obtained and reviewed from [facility] cardiology including last office visit, EKG 07/11/23, echo and carotid US 04/19/22, and device interrogation 08/25/23
-AF burden by last interrogation <1% however 75 AT/AF events from 11/24/2022 - 08/25/2023, however most episodes were brief.
-of note, she is on ibrutinib for Waldenstrom's which carries side effect of afib.
-for device interrogation today. apaced on review of tele overnight
-would repeat echo today
-patient's daughter states PPM NOT MRI conditional, however per rep appears to be conditional - if able to have MRI, would complete
-[id number] score of 6 for age, HTN, female, and now CVA by head CT. would recommend OAC - consider hematology evaluation, followed by Dr. Dheeraj Wood of [place], hgb 13.1 on 11/20
-would consider transitioning flecainide to alternative AAD given breakthrough on highest dose 150mg Q12H
-d/w neurology [employer]
Data Reviewed
-
EKG: Tracing Personally Visualized and interpreted
CT Scan: Report Reviewed by me
Medical Tests (Nuc Med, Echo etc): Report Reviewed by me
Labs: Labs Reviewed by me
Old Records: Reviewed
[2023-11-21 09:30] VITALS: BP 166/70; BP 166/88; PULSE 70; PULSE 73; O2SAT 96
--- NOTE | 2023-11-21 09:41 | W.PN.CARDCBS ---
Impression / Plan
-
Primary Hand Fabric Cutter: Dr. Zahra Bobo of [facility]
Primary Merchandising Manager: Dr. Dheeraj Wood
Assessment:
Presentation with R sided weakness
Concern for acute TIA/CVA
PAF
Chronic flecainide therapy
Waldenstrom's macroglobulinemia, diagnosed 2016
Not OAC candidate in past due to bleeding associated with above
[employer] PPM
HTN
Venous insufficiency
Carotid ultrasound 04/19/2022: 1 to 15% stenosis of bilateral internal carotid arteries
Echocardiogram 04/19/2022: EF 55 to 60%, mild MR, trace TR
Plan:
-Patient presents with R sided weakness, concern for acute TIA/CVA. fortunately patient reports symptoms have resolved
-Head CT with evidence of 'probably old' lacunar infarcts
-records obtained and reviewed from [facility] cardiology including last office visit, EKG 07/11/23, echo and carotid US 04/19/22, and device interrogation 08/25/23
-AF burden by last interrogation <1% however 75 AT/AF events from 11/24/2022 - 08/25/2023, however most episodes were brief.
-of note, she is on ibrutinib for Waldenstrom's which carries side effect of afib.
-for device interrogation today. apaced on review of tele overnight
-would repeat echo today
-patient's daughter states PPM NOT MRI conditional, however per rep appears to be conditional - if able to have MRI, would complete
-[id number] score of 6 for age, HTN, female, and now CVA by head CT. would recommend OAC - will need to discuss with hematology, followed by Dr. Dheeraj Wood of [place], hgb 13.1 on 11/20
-would consider transitioning flecainide to alternative AAD given breakthrough on highest dose 150mg Q12H
-d/w neurology MEDICAL RECORDS FIELD TECHNICIAN
Progress Note - Hand Fabric Cutter
Subjective
Date of Service: November 21, 2023
Objective
Labs:
11/21/23 07:33
11/21/23 07:33
Labs
Hgb 13.1 g/dL (12.0-16.0) 11/21/23 07:33
Hct 39.6 % (37.0-47.0) 11/21/23 07:33
Plt Count 166 10^3/uL (130-400) 11/21/23 07:33
PT 13.3 Sec (11.4-14.6) 11/20/23 15:58
INR 1.03 11/20/23 15:58
APTT 25.8 Sec (23.4-35.0) 11/20/23 15:58
Sodium 143 mmol/L (135-145) 11/21/23 07:33
Potassium 3.6 mmol/L (3.5-5.1) 11/21/23 07:33
BUN 14 mg/dl (7-17) 11/21/23 07:33
Creatinine 0.7 mg/dL (0.6-1.0) 11/21/23 07:33
Glucose 89 mg/dl (70-99) 11/21/23 07:33
Troponins
11/20/23
15:58
Troponin I < 0.012
Vital Signs and I&O:
Vital Signs
Temp Pulse Resp BP Pulse Ox
98.3 F 74 12 169/97 98
11/21/23 07:15 11/21/23 07:15 11/21/23 07:15 11/21/23 07:15 11/21/23 07:45
Vital Signs
Temp Pulse Resp BP Pulse Ox
98.3 F 74 12 169/97 98
11/21/23 07:15 11/21/23 07:15 11/21/23 07:15 11/21/23 07:15 11/21/23 07:45
Intake & Output
11/19/23 11/20/23 11/21/23 11/22/23
07:59 07:59 07:59 07:59
Intake Total 0 / 0
Balance 0 / 0
[2023-11-21 09:54] LABS: Glycohemoglobin (HgbA1c) 5.2 % (4.0-5.6)
--- NOTE | 2023-11-21 10:33 | PTOTSP ---
Pt presents to OT with grossly intact vision, cognition and UE AROM, strength and coordination. Currently at mod I/I level with basic ADLs, transfers and functional mobility in room and bathroom without AD. Pt reports all symptoms have resolved. No
further skilled OT indicated at this time.
[2023-11-21 11:05] VITALS: BP 162/90
--- NOTE | 2023-11-21 11:13 | W.PN.NEURO.1 ---
Documented by User: Arlene Goldstein NP 11/21/23 11:42
Today's Communication / Plan
-
.
Neuro Assessment/Plan
Assessment
This is a 78-year-old RH female who presented to on 11/20/23 with report of sudden onset right-sided numbness, weakness, and slurred speech at 1520. On arrival in the ER, symptoms had improved and NIHSS was 1 for mild sensation change. CT head was
obtained and is suggestive of old right and left external capsule lacunar infarcts. She was not a candidate for TNK/IAT due to low NIHSS. She was loaded with aspirin in the ER. Patient has a history of paroxysmal Afib but has not been on
anticoagulation due to her history of Waldenstrom's syndrome and ocular vitreous hemorrhages.
-CT head 11/20/23: There is a 3 mm probably old lacunar infarct in the right external capsule. There is 3 mm probably lacunar infarct in the left external capsule. There is mild diffuse cortical and cerebellar atrophy.
I. Likely a small lacunar ischemic stroke producing patient's symptoms; etiology possibly small vessel disease, Afib not on OAC.
II. Hyperlipidemia.
III. Hypertension.
IV. CT head suggestive of old lacunar infarcts, patient cannot have MRI imaging due to pacemaker incompatibility.
Plan
-Continue aspirin 81mg daily. Cardiology consultation to evaluate for benefits/risk of initiating OAC for stroke prevention.
-Permissive hypertension SBP<220, DBP<120 until 1520 today, then goal normotension.
-Monitor on telemetry.
-Family refuses repeat CT head imaging today, would prefer to do this testing as an outpatient in a few months as this will be more likely to demonstrate any structural changes.
-Carotid ultrasound pending.
-TTE pending.
-LDL goal <70. LDL is 170. Atorvastatin 40mg daily initiated.
-Goal normoglycemia, bA1c is 5.2.
-NIHSS and neurological checks per unit guidelines.
-Provide patient with a stroke education packet.
-PT/OT/St evaluations.
-DVT prophylaxis.
-Patient should follow-up with Neurology as an outpatient in about 4 weeks, may see the UNION CONTRACT REPRESENTATIVE or one of the physicians.
Subjective/Objective
Subjective Data
Date of Service: November 21, 2023
No acute events overnight. Patient notes some mild decreased sensation in all of her right hand fingertips, otherwise she feels back to her baseline. She denies any headache, dizziness, vision changes, speech/swallow difficulty, weakness, chest
pain, palpitations, and shortness of breath.
Objective Data
Vital Signs
Temp Pulse Resp BP Pulse Ox
98.3 F 74 12 169/97 98
11/21/23 07:15 11/21/23 07:15 11/21/23 07:15 11/21/23 07:15 11/21/23 07:45
Lab Results
11/21/23 07:33
11/21/23 07:33
PT 13.3 Sec (11.4-14.6) 11/20/23 15:58
INR 1.03 11/20/23 15:58
APTT 25.8 Sec (23.4-35.0) 11/20/23 15:58
Sodium 143 mmol/L (135-145) 11/21/23 07:33
Potassium 3.6 mmol/L (3.5-5.1) 11/21/23 07:33
BUN 14 mg/dl (7-17) 11/21/23 07:33
Glucose 89 mg/dl (70-99) 11/21/23 07:33
Calcium 9.2 mg/dl (8.4-10.2) 11/21/23 07:33
LDL Cholesterol, Calc 170 mg/dl 11/21/23 07:33
Patient Allergies
adhesive tape Allergy (Verified 11/20/23 15:50)
Rash
metoprolol Allergy (Verified 11/20/23 15:50)
dizziness
LDL Level: >70, statin ordered
Review of Systems
-
History Source: Patient
EENT: Negative Blurry Vision, Decreased Vision or Swallowing Difficulty
Respiratory: Negative Cough or Trouble Breathing
Cardiac: Negative Chest Pain or Palpitations
Abdomen/GI: Negative Nausea
Neuro: Numbness; Negative Dizzy, Headache, Weakness, Ataxia, Tremors or Speech Problem
Physical Exam
-
General: Well Developed, Well Nourished and No Apparent Distress
Eyes: No Ptosis and PERRLA
HEENT: Normocephalic and Atraumatic
Neck: Full Range of Motion
Respiratory: No Dyspnea
GI: Non-distended
Extremities: No Clubbing, No Cyanosis and No Edema
Extended Neurological Exam
Mood & Affect: Mood Unremarkable and Affect Unremarkable
Attention Span & Concentration: Awake, Alert and Interactive
Memory: Unremarkable (AAOx3) and Able to Recall
Tremor: Hand Tremor Absent and Head Tremor Absent
Involuntary Movement: None
Speech: Quality Unremarkable, Quantity Unremarkable and Rate of Production Unremarkable
Cranial Nerve II: Left Eye: Pupillary Reactivity Unremarkable, Pupillary Size Unremarkable and Visual Butcher Intact
Cranial Nerve II: Right Eye: Pupillary Reactivity Unremarkable, Pupillary Size Unremarkable and Visual Butcher Intact
Cranial Nerves III, IV, : Extraocular Movement: Extraocular Movement Full in all Directions
Cranial Nerve V: Facial Sensation: Intact to Light Touch
Cranial Nerve VII: Facial Symmetry: Normal Facial Symmetry
Cranial Nerve VIII: Hearing: Unremarkable Hearing to Normal Conversational Volume
Cranial Nerves IX, X: Palate Movement: Palate Elevation Symmetric
Cranial Nerve XI: Shoulder Shrug: Unremarkable
Cranial Nerve XII: Tongue Protusion: Midline
Muscle Strength, Overall: Full Throughout
Muscle Bulk & Tone: Bulk Unremarkable and Tone Unremarkable
Pronator Drift: No Drift in Upper Extremities and No Drift in Lower Extremities
Deep Tendon Reflexes: Unremarkable Throughout
Vibration Sensation: Unremarkable
Touch Sensation: Double Simultaneous Stimulation Unremarkable and Other (Reports mild decreased sensation in R hand)
Coordination: [id number] Testing Unremarkable
Babinski Sign: Absent Bilaterally
Modified Billy Score (MRS)
-
Modified [place] Scale (mRS): No significant disability. Able to carry out usual activities.
Score: 1
Data Reviewed
-
CT Head: Report Reviewed and Image Reviewed
Carotid Ultrasound: Pending
Echocardiogram: Pending
Labs: Report Reviewed
Lipid Profile: Report Reviewed
HgbA1C: Report Reviewed
Reviewed with: Physician, Patient and Family
Medications
-
Active Medications
Generic Name Dose Route Start Last Admin
Trade Name Freq PRN Reason Stop Dose Admin
Acetaminophen 650 mg 11/20/23 17:57
Acetaminophen 650 Mg Rectal Suppository RECTAL 12/18/23 17:56
Q4HPRN PRN
AGUILERA, mild pain, or temp >100.4F
Acetaminophen 650 mg 11/20/23 17:57
Acetaminophen 325 Mg Tablet PO 12/18/23 17:56
Q4HPRN PRN
AGUILERA, mild pain, or temp >100.4F
Amlodipine Besylate 5 mg 11/20/23 20:10 11/21/23 07:26
Amlodipine 5 Mg Tablet PO 12/18/23 20:09 5 mg
BID LATISHA Administration
Aspirin 81 mg 11/21/23 08:00 11/21/23 07:26
Aspirin 81 Mg Chewable Tablet PO 12/19/23 07:59 81 mg
DAILY LATISHA Administration
Flecainide Acetate 150 mg 11/20/23 20:00 11/21/23 07:26
Flecainide 100 Mg Tablet PO 12/18/23 19:59 150 mg
Q12 LATISHA Administration
Hydralazine HCl 10 mg 11/21/23 20:00
Hydralazine 10 Mg Tablet PO 12/19/23 19:59
BID LATISHA
Hydralazine HCl 5 mg 11/20/23 17:57
Hydralazine 20 Mg/Ml Vial IV 12/18/23 17:56
Q4HPRN PRN
SBP>220 or DBP>110
Melatonin 5 mg 11/20/23 22:00 11/20/23 21:11
Melatonin 5 Mg Tablet PO 12/18/23 21:59 5 mg
HS LATISHA Administration
Non-Formulary Medication 420 mg 11/21/23 15:00
Ibrutinib [Imbruvica] PO 12/19/23 14:59
DAILY@1500 LATISHA
Sodium Chloride 0 flush 11/20/23 18:00
Sodium Chloride 0.9% (Flush) Syringe IV 12/18/23 17:59
PER PROTOCOL LATISHA
Home Medications
�Medication �Instructions �Recorded
amlodipine 5 mg tablet 5 mg PO BID Blood Pressure 11/20/23
cholecalciferol (vitamin D3) 50 50 mcg PO DAILYPRN PRN supplement 11/20/23
mcg (2,000 unit) tablet (Vitamin
D3)
conjugated estrogens 0.625 mg/gram 0.625 mg vaginal QWEEK Hormonal 11/20/23
vaginal cream (Premarin) Agent
flecainide 100 mg tablet 150 mg PO Q12H Arrhythmia 11/20/23
hydralazine 10 mg tablet 10 mg PO BID Blood Pressure 11/20/23
hydralazine 10 mg tablet 10 mg PO DAILYPRN PRN hypertension 11/20/23
ibrutinib 420 mg tablet (Imbruvica) 420 mg PO DAILY@1500 Cancer 11/20/23
ranibizumab-eqrn 0.5 mg/0.05 mL 0.5 mg intravitreal Q4W Eye 11/20/23
intravitreal solution for Condition
injection (Cimerli)
NIH Stroke Score
Subsequent NIH Scale
Date of Subsequent NIH Scale: 11/21/23
Time of Subsequent NIH Scale: 09:30
NIH Stroke Score
Level of Consciousness: 0 - Alert
LOC Questions: 0-Answers both correctly
LOC Commands: 0-Performs both correctly
Best Horizontal Gaze: 0-Normal
Visual Butcher: 0=Normal, no visual loss
Facial Palsy: 0=Normal, symmetrical
Motor - Right Arm: 0=No drift 10 seconds
Motor - Left Arm: 0=No drift 10 seconds
Motor - Right Le-No drift 5 seconds
Motor - Left Le-No drift 5 seconds
Limb Ataxia: 0-Absent
Sensation: 1-Mild loss
Best Language: 0-No aphasia
Dysarthria: 0-Normal
Extinction and Inattention: 0-No abnormality
Total Score:: 1
Modified Billy (mRS) Score
Modified [place] Scale (mRS): No significant disability. Able to carry out usual activities.
Score: 1
Alteplase Contraindication
Inclusion and Exclusion criteria reviewed: Yes
IAT Contraindications: NIHSS < 6

Documented by User: Karlo Barth MD 11/21/23 12:16
Today's Communication / Plan
-
78-year-old RH female who was admitted to on 11/20/23 with new right-sided numbness, weakness, and slurred speech at 1520. On arrival symptoms had improved and NIHSS was 1 for mild sensation change. She most likely had left thalamic lacunar
ischemia was placed on aspirin. This morning she is asymptomatic and wishes to go
Plan: Continue aspirin 81 mg daily. Strict blood pressure control. Consider statin therapy. Patient may go home
Modified [place] Score (MRS)
-
Score: 1
NIH Stroke Score
NIH Stroke Score
Total Score:: 1
Modified [place] (mRS) Score
Score: 1
--- NOTE | 2023-11-21 11:41 | PTOTSP ---
Dysphagia Evaluation
Oral and pharyngeal stages of swallowing suspected to be grossly within functional limits based on this evaluation.
Patient multilingual. No dysarthria observed in Qatari. Patient/family denied any signs of aphasia. Consider testing language/cognition with interpreting assistance to rule out language differences (as patient speaks/reads/writes Qatari but
this is a secondary language).
Recommend:
1. Regular, Thin Liquids
2. General aspiration and reflux precautions
3. Consider language/cognitive testing with interpreting device as patient multilingual.
--- NOTE | 2023-11-21 14:58 | W.CARD.DEVCH ---
Cardiac Device Check
-
Device: Pacemaker
[employer] Team Member: Erydel
The patient's device was interrogated with assistance of the device customer solutions representative. The device had normal function. No recent or sustained A-fib noted, AF burden remains less than 1%. No VT. Her pacemaker IS MRI conditional.
--- NOTE | 2023-11-21 15:07 | W.DS.TRANS ---
DC Summary - Track Worker
-
Discharge Instructions:
Sleep Apnea Risk Low
Discharge Diagnosis/Procedures CVA
Diet Low Cholesterol
Instructions:
Stand-Alone Forms:
Changes to Home Medications: Yes
Discharge Medications:
DC Medications w/original date entered in ABS
amlodipine 5 mg tablet 5 mg PO BID Blood Pressure 11/20/23
cholecalciferol (vitamin D3) 50 mcg (2,000 unit) tablet (Vitamin D3) 50 mcg PO DAILYPRN PRN supplement 11/20/23
conjugated estrogens 0.625 mg/gram vaginal cream (Premarin) 0.625 mg vaginal QWEEK Hormonal Agent 11/20/23
flecainide 100 mg tablet 150 mg PO Q12H Arrhythmia 11/20/23
hydralazine 10 mg tablet 10 mg PO BID Blood Pressure 11/20/23
hydralazine 10 mg tablet 10 mg PO DAILYPRN PRN hypertension 11/20/23
ibrutinib 420 mg tablet (Imbruvica) 420 mg PO DAILY@1500 Cancer 11/20/23
ranibizumab-eqrn 0.5 mg/0.05 mL intravitreal solution for injection (Cimerli) 0.5 mg intravitreal Q4W Eye Condition 11/20/23
aspirin 81 mg chewable tablet 81 mg PO DAILY #30 tabs 11/21/23
atorvastatin 40 mg tablet 40 mg PO QPM #30 tabs 11/21/23
Home Medication Changes
Aspirin and Lipitor initiated
Pending Results: No
--- NOTE | 2023-11-21 15:15 | CM ---
CM met with patient and her daughter at bedside to complete IA.
Patient lives alone in a 2 story home with 1 entry step. Bed and bath are on the second level with 12 steps.
Patient was admitted for stroke, however symptoms have resolved. PT and OT have signed off with no recommendations for additional therapy after discharge.
Patient is anxious to go home.
Plan: Discharge to home with no needs.
PCP: Millicent Evans
Pharmacy: [facility] in [place]
[2023-11-21 15:45] VITALS: BP 137/78
== END 2023-11-21 15:59 | disposition home or self-care (01) ==
LOC: 4 EAST ACU 17:05
PROVIDERS: Physician Assistant Medical; ADMITTING PHYSICIAN Internal Medicine; ATTENDING PHYSICIAN Internal Medicine; CONSULT PHYSICIAN Psychiatry & Neurology Neurology; EMERGENCY PHYSICIAN Emergency Medicine; FAMILY PHYSICIAN Family Medicine; OTHER PHYSICIAN Internal Medicine Cardiovascular Disease
DX: I63.81 Other cerebral infarction due to occlusion or stenosis of small artery (principal); R20.0 Anesthesia of skin; K58.9 Irritable bowel syndrome, unspecified; I10 Essential (primary) hypertension; I48.0 Paroxysmal atrial fibrillation; K21.9 Gastro-esophageal reflux disease without esophagitis; C88.0 Waldenstrom macroglobulinemia; G31.9 Degenerative disease of nervous system, unspecified; I51.7 Cardiomegaly; R94.31 Abnormal electrocardiogram [ECG] [EKG]; I49.1 Atrial premature depolarization; I34.0 Nonrheumatic mitral (valve) insufficiency; I16.1 Hypertensive emergency; I87.2 Venous insufficiency (chronic) (peripheral); R53.1 Weakness; R47.81 Slurred speech; E78.5 Hyperlipidemia, unspecified; H35.30 Unspecified macular degeneration; Z88.8 Allergy status to other drugs, medicaments and biological substances; Z91.048 Other nonmedicinal substance allergy status; Z95.0 Presence of cardiac pacemaker; Z60.3 Acculturation difficulty; Z86.73 Personal history of transient ischemic attack (TIA), and cerebral infarction without residual deficits
CPT/HCPCS: 93288; 70450; 80048; 80053; 80061; 82962; 83036; 83735; 84484; 85025; 85027; 85610; 85730; 92610; 93005; 93306; 93880; 97110; 97161; 97165; 99291; G0378

== ENCOUNTER → 2024-07-23 07:54 | Outpatient (REF) | payer MEDICARE, OTHER, SELFPAY | LOC: HWRAD 07:54 | PROVIDERS: ATTENDING PHYSICIAN Family Medicine | DX: R10.13 Epigastric pain (principal) | CPT/HCPCS: 76700 ==

== ENCOUNTER → 2024-12-17 09:48 | Outpatient (REF) | payer MEDICARE, OTHER, SELFPAY ==
[2024-12-17 12:29] LABS: Hematocrit 36.5 % (37.0-47.0); Hemoglobin 11.7 g/dL (12.0-16.0); Mean Corp Hgb Conc. 32.1 g/dL (33.0-37.0); Mean Corpuscular Volume 93.8 fL (81.0-99.0); Nucleated Red Blood Cells % 0 %; Platelet Count 174 10^3/uL (130-400); Red Cell Dist. Width 13.7 % (11.5-14.5)
[2024-12-17 13:12] LABS: ALT (SGPT) 20 U/L (0-35); AST (SGOT) 20 U/L (14-36); Albumin 3.8 g/dl (3.5-5.0); Alkaline Phosphatase 57 U/L (38-126); Blood Urea Nitrogen 12 mg/dl (7-17); Calcium 8.7 mg/dl (8.4-10.2); Carbon Dioxide 30 mmol/L (22-30); Chloride 106 mmol/L (98-107); Glucose 78 mg/dl (70-99); Iron 61 ug/dl (37-170); Potassium 3.9 mmol/L (3.5-5.1); Sodium 140 mmol/L (135-145); Total Protein 6.5 g/dl (6.3-8.2); eGFR > 60.00
[2024-12-17 13:18] LABS: INR 1.04; PT 13.9 Sec (11.4-14.6)
[2024-12-17 13:19] LABS: APTT 28.0 Sec (23.4-35.0); Fibrinogen 452 MG/DL (199-459)
[2024-12-17 13:21] LABS: C-Reactive Protein 19.60 mg/L (0.0-10.00)
[2024-12-17 13:21] LABS: Total Iron Binding Capacity 332 ug/dl (265-497)
[2024-12-17 13:22] LABS: D-Dimer 0.89 ug/mlFEU (0.00-0.50)
[2024-12-17 13:37] LABS: Vitamin D, 25-OH*** 29.9 ng/mL (30-80)
[2024-12-17 13:42] LABS: CA 125 < 5.5 U/mL (0-35)
[2024-12-17 13:55] LABS: CEA 0.55 ng/ml; Ferritin 14.8 ng/ml (11.1-264.0)
[2024-12-17 14:27] LABS: Folate 6.1 ng/ml (2.76-20); Vitamin B12 868 pg/ml (239-931)
[2024-12-19 07:41] LABS: Source Blood
[2024-12-19 20:57] LABS: CA 19-9 3 U/mL (<=35)
[2024-12-20 04:23] LABS: CA 27-29 30.0 U/mL (<=39.0)
== END ==
LOC: HWLAB 09:48
PROVIDERS: ATTENDING PHYSICIAN Internal Medicine Hematology & Oncology; FAMILY PHYSICIAN Family Medicine; REFERRING PHYSICIAN Internal Medicine
DX: I10 Essential (primary) hypertension (principal); I73.00 Raynaud's syndrome without gangrene; D72.823 Leukemoid reaction; D89.1 Cryoglobulinemia; R79.1 Abnormal coagulation profile; C88.00 Waldenstrom macroglobulinemia not having achieved remission; D53.1 Other megaloblastic anemias, not elsewhere classified; D50.0 Iron deficiency anemia secondary to blood loss (chronic); R97.8 Other abnormal tumor markers
CPT/HCPCS: 36415; 80053; 82306; 82378; 82607; 82728; 82746; 82784; 83010; 83521; 83540; 83550; 84155; 84165; 85025; 85379; 85384; 85610; 85652; 85730; 86140; 86300; 86301; 86304; 86334

== ENCOUNTER → 2025-01-16 13:12 | Outpatient (REF) | payer MEDICARE, OTHER, SELFPAY ==
[2025-01-16 16:03] LABS: Hematocrit 34.7 % (37.0-47.0); Hemoglobin 11.0 g/dL (12.0-16.0); Mean Corp Hgb Conc. 31.7 g/dL (33.0-37.0); Mean Corpuscular Volume 96.9 fL (81.0-99.0); Nucleated Red Blood Cells % 0 %; Platelet Count 146 10^3/uL (130-400); Red Cell Dist. Width 13.7 % (11.5-14.5)
[2025-01-16 16:10] LABS: ALT (SGPT) 19 U/L (0-35); AST (SGOT) 24 U/L (14-36); Albumin 3.6 g/dl (3.5-5.0); Alkaline Phosphatase 51 U/L (38-126); Blood Urea Nitrogen 19 mg/dl (7-17); Calcium 10.6 mg/dl (8.4-10.2); Carbon Dioxide 28 mmol/L (22-30); Chloride 103 mmol/L (98-107); Glucose 83 mg/dl (70-99); Iron 85 ug/dl (37-170); Potassium 4.1 mmol/L (3.5-5.1); Sodium 137 mmol/L (135-145); Total Protein 7.1 g/dl (6.3-8.2); eGFR > 60.00
[2025-01-16 16:20] LABS: Total Iron Binding Capacity 341 ug/dl (265-497)
[2025-01-16 16:45] LABS: Ferritin 12.2 ng/ml (11.1-264.0)
[2025-01-16 17:16] LABS: Folate 8.5 ng/ml (2.76-20); Vitamin B12 805 pg/ml (239-931)
== END ==
LOC: HWLAB 13:12
PROVIDERS: ATTENDING PHYSICIAN Internal Medicine Hematology & Oncology; FAMILY PHYSICIAN Family Medicine
DX: I73.00 Raynaud's syndrome without gangrene (principal); D72.823 Leukemoid reaction; D89.1 Cryoglobulinemia; R79.1 Abnormal coagulation profile; C88.00 Waldenstrom macroglobulinemia not having achieved remission; R53.1 Weakness; D50.0 Iron deficiency anemia secondary to blood loss (chronic); R97.8 Other abnormal tumor markers
CPT/HCPCS: 36415; 80053; 82607; 82728; 82746; 82784; 83521; 83540; 83550; 84155; 84165; 85025; 86334